=== PATIENT | male | born 1980 | race Caucasian/White ===

== ENCOUNTER 2022-02-09 23:59 | Emergency (ER) | payer BC, SELFPAY ==
--- NOTE | ~2022-02-09 | XR_ITS ---
EXAMINATION: XR chest 2V DATE: 02/10/2022 01:18 INDICATION: Chest pain. TECHNIQUE: Frontal and lateral views of the chest were obtained. COMPARISON: None. FINDINGS: The chest demonstrates clear lungs without pneumonia, pleural effusion, or pneumothorax. Th e heart size is normal. IMPRESSION: 1. No acute cardiopulmonary disease. Reviewed, dictated and finalized at location [facility] [employer]
[2022-02-10 00:01] VITALS: BP 139/81; PULSE 87; RESP 16; TEMP 36.8; O2SAT 98
--- NOTE | 2022-02-10 00:01 | ECG_ITS ---
Measurements Intervals [place] Rate: 86 P: 27 WA: 207 QRS: 34 QRSD: 92 T: 9 QT: 347 QTc: 417 Interpretive Statements SINUS RHYTHM NONSPECIFIC T-WAVE ABNORMALITY LOW VOLTAGE ABNORMAL ECG NO PREVIOUS ECG AVAILABLE FOR COMPARISON Electronically Signed On 02-10-2022 15:30:59 [employer] by Jm Ziegler M.D.
[2022-02-10 00:38] LABS: Basophils Absolute Auto 0.1 K/mm3 (0.0-0.1); Basophils Percent Auto 0.7 % (0.2-1.2); Eosinophils Absolute Auto 0.3 K/mm3 (0-0.3); Eosinophils Percent Auto 2.3 % (0-4.4); Hematocrit 45.1 % (42.0-52.0); Hemoglobin 15.3 g/dL (14.0-18.0); Immature Granulocyte Absolute 0.07 K/mm3 (0.00-0.031); Immature Granulocyte Percent A 0.6 % (0-0.5); Lymphocytes Percent Auto 24.6 % (18.3-44.2); Mean Corpuscular HGB Conc 33.9 g/dl (32-36); Mean Corpuscular Hemoglobin 31.2 pg (26-34); Monocytes Percent Auto 8.7 % (2.6-8.5); Neutrophils Absolute Auto 6.9 K/mm3 (1.3-6.7); Neutrophils Percent Auto 63.1 % (45.5-73.1); Platelet Count Result 329 k/mm3 (150-375); Red Cell Distribution Width 13.3 % (11.5-14.5)
[2022-02-10] MEDS: ASPIRIN 81 MG CHEWABLE TABLET 324 MG PO (00:39)
[2022-02-10 00:46] LABS: Alanine Aminotransferase 26 U/L (6-50); Albumin Level 4.3 g/dL (3.5-5.1); Alkaline Phosphatase 91 U/L (38-126); Anion Gap 8 mmol/L (8-16); Aspartate Amino Transferase 22 U/L (17-59); Bilirubin,Total 0.7 mg/dL (0.2-1.3); Blood Urea Nitrogen 15 mg/dL (9-20); Calcium 8.9 mg/dL (8.4-10.2); Carbon Dioxide 25 mmol/L (22-30); Chloride 105 mmol/L (98-107); Estimated CRCL calculation 91 ml/min; Estimated Glomerular Filt Rate > 60; Glucose 136 mg/dL (65-110); Lipase 67 U/L (23-300); Potassium 3.5 mmol/L (3.4-5.0); Sodium 138 mmol/L (137-145)
[2022-02-10 00:57] LABS: Troponin I < 0.012 ng/mL (0.000-0.034)
[2022-02-10 01:02] LABS: INR 1.1; Prothrombin Time 13.8 Seconds (11.1-14.7)
[2022-02-10 01:03] LABS: Partial Thromboplastin Time 31.9 SECONDS (22.3-36.8)
--- NOTE | 2022-02-10 01:38 | ED.CHESTPAIN ---
HPI - Chest Pain General Chief Complaint: Chest Pain Stated Complaint: chest pressure - hx WI with stent placement in SEP Time Seen by Provider: 02/10/22 00:22 History of Present Illness HPI narrative: Patient is a 41-year-old male with history of CAD who presents ER with chest pain. Symptoms began on 02/09/2022 at 11 AM. Is been constant. Has history of WI with stenting several years back. He gets his cardiac care in [place] where he lives. He is an floor covering installer. He cannot identify aggravating or alleviating factors. Denies productive cough. No leg swelling and cramping. Pain is pressure and in the center of his chest. No radiation. Patient had had some intermittent discomfort a couple days prior to this but nothing that was of concern for him. Related Data Allergies Allergy/AdvReac Type Severity Reaction Status Date / Time hydromorphone [From Dilaudid] Allergy Difficulty Verified 02/10/22 00:00 Breathing Review of Systems Review of Systems: All systems reviewed & are unremarkable except as noted in HPI and below Constitutional: Constitutional: Denies chills, Denies fatigue and Denies fever(s) ENT: Denies nasal congestion and Denies sore throat Cardiovascular: Cardiovascular: Reports chest pain, Denies rapid heart rate and Denies radiating jaw, neck or arm pain Respiratory: Respiratory: Denies cough, Denies dyspnea and Denies wheezing Gastrointestinal: Gastrointestinal: Denies abdominal pain, Denies nausea and Denies vomiting Neurologic: Denies focal weakness and Denies numbness PMFSH Past Medical History Medical History (Updated 02/10/22 @ 03:43 by Ryne Moreno MD) Coronary artery disease Surgical History Surgical History (Updated 02/10/22 @ 01:41 by Ryne Moreno MD) History of percutaneous coronary intervention Exam Narrative: GENERAL: Well-appearing, morbidly obese, and in no acute distress. HEAD: Normocephalic, atraumatic. EYES: PERRL and EOMI. ENT: Mucous membranes moist. CHEST: Clear to auscultation. No respiratory distress. HEART: Regular rate and rhythm. Normal peripheral pulses. ABDOMEN: Soft, nontender, nondistended. EXTREMITIES: Normal range of motion. No edema. SKIN: Warm, dry, no rash. NEURO: Alert and oriented x3. PSYCH: Normal mood and affect. Course Course Emergency Course: Patient resting comfortably. Chest pain resolved with Toradol. Patient not inclined to stay in hospital he is trying to get back to [place] and is leaving in the afternoon. Second troponin negative patient will be discharged Vital Signs Vital signs: Vital Signs Temperature 98.3 F 02/10/22 00:01 Pulse Rate 87 02/10/22 00:01 Respiratory Rate 16 02/10/22 00:01 Blood Pressure 139/81 02/10/22 00:01 Pulse Oximetry 98 02/10/22 00:01 Oxygen Delivery Room Air 02/10/22 00:01 Temperature 98.3 F 02/10/22 00:01 Pulse Rate 87 02/10/22 00:01 Respiratory Rate 16 02/10/22 00:01 Blood Pressure 139/81 02/10/22 00:01 Pulse Oximetry 98 02/10/22 00:01 Oxygen Delivery Room Air 02/10/22 00:01 MDM - Chest Pain Lab Data 02/10/22 00:27 02/10/22 00:27 Labs: Lab Results 02/10/22 02/10/22 02/10/22 Range/Units 00:27 00:27 00:27 WBC 11.0 H (4.5-10.0) K/mm3 RBC 4.90 (4.6-6.20) M/mm3 Hgb 15.3 (14.0-18.0) g/dL Hct 45.1 (42.0-52.0) % MCV 92.0 (80-100) fl MCH 31.2 (26-34) pg MCHC 33.9 (32-36) g/dl RDW 13.3 (11.5-14.5) % Plt Count 329 (150-375) k/mm3 MPV 9.0 (7.4-10.4) fl Immature Gran % (Auto) 0.6 H (0-0.5) % Neut % (Auto) 63.1 (45.5-73.1) % Lymph % (Auto) 24.6 (18.3-44.2) % [place] % (Auto) 8.7 H (2.6-8.5) % Eos % (Auto) 2.3 (0-4.4) % Baso % (Auto) 0.7 (0.2-1.2) % Lymph # (Auto) 2.70 (0.9-3.2) K/mm3 [place] # (Auto) 1.0 H (0.1-0.6) K/mm3 Eos # (Auto) 0.3 (0-0.3) K/mm3 Baso # (Auto) 0.1 (0.0-0.1) K/mm3 Abs Immat Gran (auto
[2022-02-10 03:28] LABS: Troponin I < 0.012 ng/mL (0.000-0.034)
== END 2022-02-10 04:40 | disposition home or self-care (01) ==
PROVIDERS: Emergency Provider Emergency Medicine
DX: R07.9 Chest pain, unspecified (principal); I25.10 Atherosclerotic heart disease of native coronary artery without angina pectoris; I25.2 Old myocardial infarction; Z95.5 Presence of coronary angioplasty implant and graft; R94.31 Abnormal electrocardiogram [ECG] [EKG]
CPT/HCPCS: 36415; 71046; 80053; 83690; 84484; 85025; 85610; 85730; 93005; 99284; A9270